=== PATIENT | male | born 1945 | race African-American/Black ===

== ENCOUNTER 2019-10-11 20:51 | Emergency (ER) | payer OTHER, MEDICARE ==
[~2019-10-11] VITALS: Ht 188 cm; Wt 79.0 kg
[2019-10-11] MEDS ORDERED: VANCOMYCIN 1 G PREMIX 200 ML IV ONE (22:30)
[2019-10-11] MEDS ORDERED: PIPERACILLIN/TAZ 3.375G PREMIX 50 ML IV ONE (22:30)
[2019-10-12 00:45] LABS: BASOPHILS % 0.9 % (0.0-2.0); EOSINOPHILS % 1.8 % (0.0-5.0); HEMATOCRIT. 31.4 % (42.0-52.0); HEMOGLOBIN. 10.9 g/dL (14.0-18.0); LYMPHOCYTES % 18.3 % (20.0-50.0); MEAN CORPUSCULAR HEMOGLOBIN 33.7 pg (28.0-32.0); MEAN CORPUSCULAR VOLUME 96.6 fL (80.0-94.0); MEAN PLATELET VOLUME 6.8 fl (7.4-10.4); PLATELET 454 x1000/uL (130-400); RED BLOOD CELL COUNT 3.25 mill/uL (4.7-6.1)
[2019-10-12 00:48] LABS: CHLORIDE 105 mEq/L (98-107)
[2019-10-12 00:50] LABS: INR 1.1; PROTHROMBIN TIME 11.5 sec (9.6-11.0)
[2019-10-12] MEDS ORDERED: SODIUM CHLORIDE 0.9% 500 ML IV NR (01:15)
[2019-10-12 05:52] VITALS: BP 141/80
== END 2019-10-12 06:02 | disposition short-term general hospital (02) ==
LOC: ER 20:51 → CANBEDREQ 10-12 07:31
DX: L08.89 Other specified local infections of the skin and subcutaneous tissue (principal); I50.9 Heart failure, unspecified; F17.210 Nicotine dependence, cigarettes, uncomplicated; Z71.6 Tobacco abuse counseling; Z88.8 Allergy status to other drugs, medicaments and biological substances
CPT/HCPCS: 36415; 73630; 80053; 83605; 85025; 85610; 87040; 96365; 96367; 99285; 99406; J2543; J3370